=== PATIENT | female | born 1965 | race Native Hawaiian/Other Pacific Islander ===

== ENCOUNTER 2016-09-30 13:03 | Emergency (ER) | payer OTHER ==
[~2016-09-30] VITALS: Ht 162.6 cm; Wt 108.0 kg
[~2016-09-30 13:03] MED LIST: ACET7.5T70 PO; BAYER CHEWABLE81 MG OR; CLARITIN10 MG PO; CYCL10TA35 PO; FLEXERIL5 MG PO; FURO20TA67 PO; MEDROXYPR AC2.5 MG PO; NAPR500T40 PO; NEURONTIN 100M100 MG PO; NEXIUM 24HR20 MG PO; NITROSTAT0.4 MG SL; ORTHO EST OR; PRAVASTATIN10 MG PO; PRED20TA27 PO; PROM25TA52 PO; RANI150T78 PO; STOOL PO; TRIA0.1O13 TOP
[2016-09-30 13:41] LABS: PLATELET COUNT 266 K/uL (152-353)
[2016-09-30 13:51] LABS: POTASSIUM 3.5 mmol/L (3.6-5.2)
[2016-09-30 15:15] VITALS: BP 130/85; TEMP 98.6
== END 2016-09-30 15:15 | disposition home or self-care (01) ==
LOC: ED 13:03
DX: J42 Unspecified chronic bronchitis (principal)
CPT/HCPCS: 36415; 80053; 83880; 85027; 96365; 96375; 99284; J0696; J2930

== ENCOUNTER 2016-12-11 17:58 | Emergency (ER) | payer OTHER ==
[~2016-12-11] VITALS: Ht 162.6 cm; Wt 98.0 kg
[2016-12-11 19:41] VITALS: BP 135/80; TEMP 98.4
== END 2016-12-11 19:45 | disposition home or self-care (01) ==
LOC: ED 17:58
DX: S00.83XA Contusion of other part of head, initial encounter (principal); S20.212A Contusion of left front wall of thorax, initial encounter; Y04.2XXA Assault by strike against or bumped into by another person, initial encounter; Y93.89 Activity, other specified; Y92.098 Other place in other non-institutional residence as the place of occurrence of the external cause
CPT/HCPCS: 99283

== ENCOUNTER 2017-01-10 13:01 | Outpatient (CLI) | payer OTHER | END 2017-01-10 14:00 | disposition home or self-care (01) | LOC: RAD 13:01 | DX: M81.0 Age-related osteoporosis without current pathological fracture (principal) ==

== ENCOUNTER 2017-06-20 11:02 | Outpatient (CLI) | payer OTHER | END 2017-06-20 13:00 | disposition home or self-care (01) | LOC: MRI 11:02 | DX: M79.89 Other specified soft tissue disorders (principal) ==

== ENCOUNTER 2017-08-13 12:56 | Outpatient (CLI) | payer OTHER | END 2017-08-13 14:00 | disposition home or self-care (01) | LOC: LABW 12:56 | DX: M10.071 Idiopathic gout, right ankle and foot (principal); M10.072 Idiopathic gout, left ankle and foot | CPT/HCPCS: 36415; 84550; 85651 ==

== ENCOUNTER 2017-08-28 11:34 | Outpatient (CLI) | payer OTHER | END 2017-08-28 19:22 | disposition home or self-care (01) | LOC: LABW 11:34 | DX: M10.071 Idiopathic gout, right ankle and foot (principal); M10.072 Idiopathic gout, left ankle and foot; B35.1 Tinea unguium | CPT/HCPCS: 36415; 84450; 84460; 84550 ==

== ENCOUNTER 2017-10-03 13:39 | Emergency (ER) | payer OTHER ==
[~2017-10-03] VITALS: Ht 162.6 cm; Wt 88.5 kg
[2017-10-03 14:51] LABS: PLATELET COUNT 174 K/uL (152-353)
[2017-10-03 15:43] LABS: POTASSIUM 3.2 mmol/L (3.6-5.2)
[2017-10-03 16:55] VITALS: BP 132/71; TEMP 97.8
== END 2017-10-03 16:55 | disposition home or self-care (01) ==
LOC: ED 13:39
PROVIDERS: Family Medicine
DX: R10.84 Generalized abdominal pain (principal); K59.03 Drug induced constipation; T40.2X5A Adverse effect of other opioids, initial encounter; Y92.89 Other specified places as the place of occurrence of the external cause
CPT/HCPCS: 36415; 80053; 82150; 83690; 85027; 96374; 96375; 99284; J1170; J2405

== ENCOUNTER 2017-10-14 13:04 | Outpatient (CLI) | payer OTHER | END 2017-10-14 20:27 | disposition home or self-care (01) | LOC: LABW 13:04 | DX: B35.1 Tinea unguium (principal) | CPT/HCPCS: 36415; 84450; 84460 ==

== ENCOUNTER 2018-05-20 13:43 | Outpatient (CLI) | payer OTHER | END 2018-05-20 22:26 | disposition home or self-care (01) | LOC: MRI 13:43 | DX: M54.12 Radiculopathy, cervical region (principal) ==

== ENCOUNTER 2019-03-03 09:55 | Outpatient (CLI) | payer OTHER ==
[2019-03-03 10:23] LABS: PLATELET COUNT 199 K/uL (152-353)
[2019-03-03 10:26] LABS: POTASSIUM 3.7 mmol/L (3.6-5.2)
== END 2019-03-03 19:45 | disposition home or self-care (01) ==
LOC: LABW 09:55
PROVIDERS: Nurse Practitioner Family
DX: M79.7 Fibromyalgia (principal); M81.0 Age-related osteoporosis without current pathological fracture; R53.83 Other fatigue; R76.0 Raised antibody titer; R79.82 Elevated C-reactive protein (CRP)
CPT/HCPCS: 36415; 80053; 82306; 82330; 83970; 84550; 85027; 85651; 86140

== ENCOUNTER 2021-11-23 12:41 | Outpatient (CLI) | payer OTHER | END 2021-11-23 20:42 | disposition home or self-care (01) | LOC: RAD 12:41 | PROVIDERS: ATTEND Nurse Practitioner Family | DX: M54.6 Pain in thoracic spine (principal) ==